=== PATIENT | male | born 1960 | race African-American/Black ===

== ENCOUNTER 2021-01-18 16:18 | Emergency (ER) | payer MEDICARE, OTHER ==
[~2021-01-18] VITALS: Ht 185.4 cm; Wt 80.0 kg
[2021-01-18 16:24] VITALS: BP 137/70
[2021-01-18] MEDS ORDERED: POVIDONE-IODINE 10% 15 ML SOLUTION UD TP ONE (17:45)
[2021-01-18] MEDS ORDERED: LIDOCAINE 1% 10 ML VIAL SQ ONE (17:45)
[2021-01-18] MEDS ORDERED: BACITRACIN 0.9 GM PACKET OINTMENT TP ONE (17:45)
[2021-01-18] MEDS ORDERED: TraMADol HCL 50 MG TABLET PO ONE (17:45)
== END 2021-01-18 19:12 | disposition home or self-care (01) ==
LOC: EMS 17:05
DX: S61.216A Laceration without foreign body of right little finger without damage to nail, initial encounter (principal); W45.8XXA Other foreign body or object entering through skin, initial encounter; Y93.89 Activity, other specified; Y92.89 Other specified places as the place of occurrence of the external cause; Y99.8 Other external cause status
CPT/HCPCS: 12001; 99283; J3490

== ENCOUNTER 2021-01-21 09:14 | Emergency (ER) | payer MEDICARE, OTHER ==
[~2021-01-21] VITALS: Ht 185.4 cm; Wt 66.7 kg
[2021-01-21 12:03] VITALS: BP 121/70
== END 2021-01-21 12:04 | disposition home or self-care (01) ==
LOC: EMS 09:14
DX: S61.216D Laceration without foreign body of right little finger without damage to nail, subsequent encounter (principal); Z48.00 Encounter for change or removal of nonsurgical wound dressing; W45.8XXD Other foreign body or object entering through skin, subsequent encounter
CPT/HCPCS: 99281; Z7502